=== PATIENT | female | born 1990 | race Caucasian/White ===

== ENCOUNTER → 2016-11-09 | Outpatient (CLI) | payer BC ==
--- NOTE | 2016-11-09 14:27 | RADRPT ---
PROCEDURE: XR Chest. CLINICAL INDICATION: Goiter TECHNIQUE: Frontal and lateral views of the chest were obtained COMPARISON: None. FINDINGS: The cardiac size is normal. No pulmonary vascular congestion is demonstrated. The lungs are clear. No consolidation, effusion, or pneumothorax. The soft tissues and osseous structures are unremarkable. IMPRESSION: No acute cardiopulmonary process. RPTAT:PP .Robin Collier MD, MD Date Time Electronically viewed and signed by .Robin Collier MD, on 11/09/2016 14:27 .V/
--- NOTE | 2016-11-09 15:31 | RADRPT ---
PROCEDURE: US Thyroid. CLINICAL INDICATION: Enlarged thyroid. TECHNIQUE: High-resolution sonography of the thyroid was performed in the axial and sagittal plane s. COMPARISON: None. FINDINGS: The right lobe measures 3.9 x 1.4 x 1.6 cm. The left lobe measures 3.8 x 1.3 x 1.6 cm. The isthmus measures 0.3 cm. There is no thyroid nodule. Thyroid echogenicity is normal. The thyroid is normal in size. IMPRESSION: 1. Unremarkable thyroid ultrasound. RPTAT: QQ .Skyler Rubin MD, MD Date Time Electronically viewed and signed by .Skyler Rubin MD, on 11/09/2016 15:31 .R/
== END | disposition home or self-care (01) ==
LOC: U/S 12:01
PROVIDERS: ATTEND Internal Medicine
DX: E04.9 Nontoxic goiter, unspecified (principal); E05.00 Thyrotoxicosis with diffuse goiter without thyrotoxic crisis or storm
CPT/HCPCS: 71020; 76536

== ENCOUNTER → 2016-11-11 | Outpatient (CLI) | payer BC ==
[2016-11-11 07:05] LABS: ADD SCAN DIFF NO
[2016-11-11 07:14] LABS: BASOPHILS % 0.6 % (0.0-2.0); EOSINOPHILS # 0.2 10^3/ul (0.0-0.5); EOSINOPHILS % 3.6 % (0.0-7.0); HEMATOCRIT 40.4 % (37.0-47.0); HEMOGLOBIN 13.6 g/dl (12.0-16.0); LYMPHOCYTES # 2.3 10^3/ul (0.8-2.9); LYMPHOCYTES % 43.6 % (15.0-51.0); MEAN CORPUSCULAR HEMOGLOBIN 30.4 pg (29.0-33.0); MEAN CORPUSCULAR HGB CONC 33.7 g/dl (32.0-37.0); MEAN CORPUSCULAR VOLUME 90.2 fl (82.0-101.0); MONOCYTE # 0.3 10^3/ul (0.3-0.9); MONOCYTES % 5.9 % (0.0-11.0); NEUTROPHIL # 2.4 10^3/ul (1.6-7.5); NEUTROPHILS % 45.9 % (39.0-77.0); PLATELET COUNT 375 10^3/UL (140-415); RED BLOOD COUNT 4.48 10^6/ul (4.20-5.40); RED CELL DISTRIBUTION WIDTH 12.4 % (11.5-14.5); WHITE BLOOD COUNT 5.3 10^3/ul (4.8-10.8)
[2016-11-11 07:30] LABS: ALBUMIN 4.3 g/dl (3.3-4.9)
[2016-11-11 07:31] LABS: CHLORIDE 105 mmol/L (97-110); POTASSIUM 3.9 mmol/L (3.5-5.1); SODIUM 144 mmol/L (135-144)
[2016-11-11 07:33] LABS: ALBUMIN/GLOBULIN RATIO 1.07; ANION GAP 18 (8-16); ASPARTATE AMINO TRANSFERASE 38 IU/L (15-46); BILIRUBIN,INDIRECT 0.6 mg/dl (0-1.1); BILIRUBIN,TOTAL 0.6 mg/dl (0.2-1.3); BLOOD UREA NITROGEN 11 mg/dl (7-20); CARBON DIOXIDE 25 mmol/L (21-31); CHOLESTEROL 205 mg/dl (100-200); CREATININE 0.75 mg/dl (0.44-1.00); TOTAL PROTEIN 8.3 g/dl (6.1-8.1)
[2016-11-11 07:34] LABS: ALANINE AMINOTRANSFERASE 28 IU/L (13-69); ALKALINE PHOSPHATASE 59 IU/L (42-121); CALCIUM 9.3 mg/dl (8.4-10.2); CHOL/HDL RATIO 2.8 RATIO; GLUCOSE 82 mg/dl (70-220); HDL CHOLESTEROL 72 mg/dl (33-83); TRIGLYCERIDES 116 mg/dl (0-149)
[2016-11-11 08:18] LABS: THYROID STIMULATING HORMONE < 0.015 MIU/L (0.465-4.680)
[2016-11-17 00:55] LABS: TSH RECEPTOR ANTIBODY 32 (< OR = 16)
== END | disposition home or self-care (01) ==
LOC: LAB 06:42
PROVIDERS: ATTEND Internal Medicine
DX: E05.00 Thyrotoxicosis with diffuse goiter without thyrotoxic crisis or storm (principal); E78.5 Hyperlipidemia, unspecified; E55.9 Vitamin D deficiency, unspecified
CPT/HCPCS: 80053; 80061; 82306; 84235; 84436; 84443; 85025